=== PATIENT | male | born 1990 | race Caucasian/White ===

== ENCOUNTER 2018-03-30 16:43 | Emergency (ER) | payer BC ==
[~2018-03-30] VITALS: Ht 182.9 cm; Wt 77.3 kg
[~2018-03-30 16:43] MED LIST: EFFEXOR 75M75 MG/TAB PO; PRINIVIL10 MG PO; ZIAC 5/6.25MG T1 TAB PO; ZOLOFT 100MG100 MG PO
[2018-03-30 16:46] VITALS: TEMP 98.5
[2018-03-30] MEDS ORDERED: ZEBETA 5MG5 MG PO (16:59)
[2018-03-30] MEDS ORDERED: XANAX 1MG1 MG PO (17:00)
[2018-03-30 17:18] LABS: BASO % 0.1 % (0.0-2.0); EOS # 0.1 (0.0-0.7); EOS % 0.8 % (0-4.0); GRAN # 5.3 (1.4-6.5); GRAN % 69.8 % (42.2-75.2); HEMATOCRIT 45.6 % (42.0-52.0); HEMOGLOBIN 15.7 g/dl (13.5-18.0); LYMPH # 1.6 (1.2-3.4); LYMPH % 20.8 % (20.0-51.0); MEAN CELL VOLUME 85 fl (80.0-100.0); MEAN CORPUSCULAR HEMOGLOBIN 29 pg (27.0-31.0); MEAN CORPUSCULAR HGB CONC 34 g/dl (33.0-37.0); MEAN PLATELET VOLUME 9.4 fl (7.4-10.4); MONO # 0.6 (0.1-0.6); MONO % 8.2 % (1.7-9.3); PLATELET COUNT 210 K/mm3 (130-400); RED BLOOD COUNT 5.39 M/mm3 (4.20-5.60); REDCELL DISTRIBUTION WIDTH-CV 12.4 % (11.5-14.5)
[2018-03-30 17:36] LABS: CALCIUM 10.1 mg/dL (8.4-10.2); CREATININE, serum 1.07 mg/dL (0.66-1.25); POTASSIUM 3.8 mmol/L (3.4-5.0)
[2018-03-30 18:41] VITALS: BP 126/56; PULSE 70
== END 2018-03-30 18:42 | disposition home or self-care (01) ==
LOC: COL.ER 16:43
PROVIDERS: Emergency Medicine
DX: S27.321A Contusion of lung, unilateral, initial encounter (principal); I10 Essential (primary) hypertension; F41.9 Anxiety disorder, unspecified; V80.010A Animal-rider injured by fall from or being thrown from horse in noncollision accident, initial encounter; Y92.830 Public park as the place of occurrence of the external cause
CPT/HCPCS: Q9967

== ENCOUNTER → 2021-05-22 | Outpatient (CLI) | payer SELFPAY ==
[~2021-05-22] MED LIST changes: +XANAX 1MG1 MG PO; +ZEBETA 5MG5 MG PO
[2021-05-22 20:27] LABS: CREATININE, serum 0.97 (0.66-1.25); MAGNESIUM 1.9 mg/dL (1.6-2.3); PHOSPHOROUS 4.6 mg/dL (2.5-4.5); POTASSIUM 4.4 mmol/L (3.4-5.0)
== END ==
LOC: ZCOL.LAB 19:49
PROVIDERS: Nurse Practitioner
DX: R00.2 Palpitations (principal)